=== PATIENT | female | born 1985 | race Caucasian/White ===

== ENCOUNTER 2018-07-28 09:45 | Emergency (ER) | payer OTHER ==
[2018-07-28 09:52] VITALS: BP 133/88; PULSE 91; TEMP 97.3; BMI 32.1
--- NOTE | 2018-07-28 10:44 | PDOC ---
History of Present Illness - General Chief Complaint: Cold Symptoms Stated Complaint: COLD SYMPTOMS Time Seen by Provider: 07/28/18 09:53 - History of Present Illness Initial Comments: 07/28/18 10:44 33 years old with no significant past medical history presents emergency department with one-month history of cough she is also complaining of sore tender areas behind her knees and under her armpits. She has been to 2 emergency departments over the last month for these complaints was initially put on azithromycin by her primary care provider and recently started a course of amoxicillin as prophylactics to an upcoming dental procedure Denies fevers denies night sweats denies travel history fully immunized no HIV risk factors Symptoms are mild to moderate persistent constant with no exacerbating or alleviating factors. Past History - Past Medical History Allergies/Adverse Reactions: Allergies Allergy/AdvReac Type Severity Reaction Status Date / Time No Known Allergies Allergy Verified 07/28/18 09:46 Home Medications: Ambulatory Orders Albuterol Sulfate Inhaler - [Ventolin Hfa Inhaler -] 1 - 2 inh PO Q4H #1 inhaler 07/28/18 Amoxicillin - [Amoxicillin 500mg Capsule -] 500 mg PO ONCE 07/28/18 COPD: No - Suicide/Smoking/Psychosocial Hx Smoking History: Current some day smoker Have you smoked in the past 12 months: No Number of Cigarettes Smoked Daily: 1 Information on smoking cessation initiated: Yes Hx Alcohol Use: No Drug/Substance Use Hx: No Substance Use Type: None Review of Systems - Review of Systems Comments:: 07/28/18 10:45 ROS: A complete review of 10 out of 10 review of systems is taken and is negative apart from what is previously mentioned below and in the HPI. *Physical Exam - Vital Signs Last Vital Signs Temp Pulse Resp BP Pulse Ox 97.3 F L 91 H 20 133/88 98 07/28/18 09:46 07/28/18 09:46 07/28/18 09:46 07/28/18 09:46 07/28/18 09:46 - Physical Exam Comments: 07/28/18 10:45 Vitals: Triage Vital signs reviewed General Appearance: no acute distress, well nourished well developed, Head: Atraumatic, Eyes: Pupils equal reactive round, extraocular movement intact Ears: TM's normal bilaterally; Nose: Nares patent bilaterally;no nasal congestion Throat: Posterior oropharynx without erythema, mucous membranes moist, Neck: Supple;No Nucal rigidity Chest Wall: Nontender Cardiac: Regular rate and rhythym, no murmurs, no rubs, no gallops, Lungs: Clear to auscultation bilateral, good air movement bilaterally, Abdomen: Soft, non distended, normal bowel sounds, non tender to palpation Extremities: Full range of motion to all extremities, no cyanosis, clubbing, or edema Lymphs: No discernible palpable cervical lymph nodes. No axillary lymph nodes are easily palpated but to tender areas bilaterally chest under the pectoralis major insertion. No palpable lymph nodes behind the patient's knees but slightly tender to palpation. Skin: Warm and dry, no rashes or lesions, no rash, no petechiae Psych: normal mood, normal affect Moderate Sedation - Procedure Monitoring Vital Signs: Procedure Monitoring Vital Signs Temperature 97.3 F L 07/28/18 09:46 Pulse Rate 91 H 07/28/18 09:46 Respiratory Rate 20 07/28/18 09:46 Blood Pressure 133/88 07/28/18 09:46 O2 Sat by Pulse Oximetry (%) 98 07/28/18 09:46 ED Treatment Course - RADIOLOGY Radiology Studies Ordered: Category Date Time Status CHEST PA & LAT [RAD] Stat Radiology 07/28/18 10:13 Taken Medical Decision Making - Medical Decision Making 07/28/18 10:46 No discernible lymph nodes on examination Patient with chronic cough 1 month Chest x-ray demonstrates no acute pathology. No high risk features to patient's complaint We'll treat with [id number] cough suppressant, Ventolin MDI for cough PCP follow-up this week and pulmonary follow-up for persistence of symptoms Findings, the need for follow-up and strict return instructions discussed patient. *DC/Admit/Observation/Transfer Diagnosis at time of Disposition: Cough - Discharge Dispostion Disposition: HOME Decision to Admit order: No - Referrals Referrals: Kane Lizarraga MD [Staff Physician] - - Patient Instructions Printed Discharge Instructions: Cough Additional Instructions: Take an [id number] cough suppressant syrup as directed on package. Try Ventolin pump 1-2 puffs every 4-6 hours to see if it helps with the cough if it does he may use it for 3 days. Follow-up with your doctor in 1-[address] Lizarraga pulmonary within 1 week return to ED for any severe worsening symptoms or for any concerns. - Post Discharge Activity
== END 2018-07-28 11:03 | disposition home or self-care (01) ==
LOC: FER 09:45
DX: R05 Cough (principal); F17.210 Nicotine dependence, cigarettes, uncomplicated
CPT/HCPCS: 71046-TC-FY; 99281-25